=== PATIENT | male | born 1980 | race Caucasian/White ===

== ENCOUNTER 2016-10-02 11:39 | Emergency (ER) | payer MEDICARE ==
[~2016-10-02] VITALS: Ht 165.1 cm; Wt 63.4 kg
[2016-10-02 11:39] VITALS: BP 111/67
[~2016-10-02 11:39] MED LIST: CEFU500T PO; METR500T PO
== END 2016-10-02 13:16 | disposition home or self-care (01) ==
LOC: ED 13:07
DX: Z76.0 Encounter for issue of repeat prescription (principal); K50.90 Crohn's disease, unspecified, without complications; Z93.3 Colostomy status
CPT/HCPCS: 99282